=== PATIENT | female | born 2000 | race Caucasian/White ===

== ENCOUNTER 2021-07-02 10:32 | Emergency (ER) | payer OTHER ==
[2021-07-02] MEDS ORDERED: DEXAMETHASONE 10 MG/ML VIAL PO STA (11:28)
[2021-07-02] MEDS ORDERED: CHERRY SYRUP 10 ML UDC PO ONE (11:28)
[2021-07-02] MEDS ORDERED: KETOROLAC 60 MG/2 ML VIAL IM STA (11:28)
--- NOTE | 2021-07-02 11:31 | ED Physician Documentation ---
PD HPI CHEST PAIN - Stated complaint Stated Complaint: SOA, CHEST PX - Chief complaint Chief Complaint: Cardiac - History obtained from History obtained from: Patient - History of Present Illness Timing - onset: Enter time (0600), Today Timing - onset during: Rest Timing - duration: Hours Timing - details: Abrupt onset, Still present Pain level max: 7 Pain level now: 5 Quality: Sharp, Pain Location: Substernal, Left chest Radiation: Back Improved by: Rest Worsened by: Inspiration, Palpation Associated symptoms: No: Shortness of air, Diaphoresis, Nausea, Vomiting, Feeling faint / dizzy, General Weakness, Palpitations, Cough Similar symptoms before: Has not had sx before Recently seen: Not recently seen - Additional information Additional information: Previous well 20-year-old female has developed some pain in left anterior chest that is worse with a deep breath. She awoke with this pain this morning and was well last night when she went to bed. She states that she has not recently been ill and has been very inactive at work. She states that mostly with they are doing out with sitting and waiting. She does indicate that about a week ago she did have a bout of sobbing. Review of Systems Constitutional: denies: Fever Eyes: denies: Decreased vision Ears: denies: Ear pain Nose: denies: Congestion Throat: denies: Sore throat Cardiac: reports: Chest pain / pressure. denies: Palpitations, Pedal edema, Calf pain Respiratory: denies: Dyspnea, Cough, Wheezing GI: denies: Abdominal Pain, Nausea, Vomiting, Constipation, Diarrhea : denies: Dysuria, Frequency Skin: denies: Rash Musculoskeletal: reports: Back pain. denies: Neck pain, Extremity pain Neurologic: denies: Generalized weakness, Focal weakness, Numbness PD PAST MEDICAL HISTORY - Past Medical History Past Medical History: No Cardiovascular: None Respiratory: None Neuro: None Endocrine/Autoimmune: None GI: None COMPLIANCE INTERN: None : None HEENT: None Psych: None Musculoskeletal: None Derm: None - Past Surgical History Past Surgical History: No - Present Medications Home Medications: Ambulatory Orders Medication Instructions Recorded Confirmed No Known Home Medications 07/02/21 07/02/21 - Allergies Allergies/Adverse Reactions: Allergies Allergy/AdvReac Type Severity Reaction Status Date / Time No Known Drug Allergies Allergy Verified 07/02/21 10:36 - Social History Does the pt smoke?: No Smoking Status: Never smoker Does the pt drink ETOH?: No Does the pt have substance abuse?: No - Immunizations Immunizations are current?: Yes PD ED PE NORMAL - Vitals Vital signs reviewed: Yes (hypertensive mild) - General General: Alert and oriented X 3, No acute distress, Well developed/nourished - HEENT HEENT: Atraumatic, PERRL, EOMI - Neck Neck: Supple, no meningeal sign, No bony TTP - Cardiac Cardiac: RRR, No murmur - Respiratory Respiratory: No respiratory distress, Clear bilaterally, Other (There is point tenderness to the anterior chest wall at the border of the sternum and the rib about 2cm below the sternal notch. similar pain to palp on the back . ) - Abdomen Abdomen: Soft, Non tender - Back Back: No CVA TTP, No spinal TTP - Derm Derm: Normal color, Warm and dry, No rash - Extremities Extremities: No deformity, No edema - Neuro Neuro: Alert and oriented X 3, chicken catcher 2-12 intact, No motor deficit, No sensory deficit, Normal speech Eye Opening: Spontaneous Motor: Obeys Commands Verbal: Oriented GCS Score: 15 - Psych Psych: Normal mood, Normal affect Results - Vitals Vitals: Vital Signs - 24 hr 07/02/21 07/02/21 10:36 10:54 Temperature 36.2 C L Heart Rate 95 98 Respiratory 16 26 H Rate Blood Pressure 118/88 H 122/81 H O2 Saturation 99 94 Oxygen O2 Source Room air - EKG (time done) 1039 Rate: Rate (enter#) (97) Rhythm: LAE Ischemia: Normal ST segments Compare to prior EKG: Old EKG unavailable Computer interpretation: Agree with computer - Labs Labs: Laboratory Tests 07/02/21 07/02/21 07/02/21 11:43 11:43 11:43 WBC 6.3 RBC 4.04 L Hgb 12.8 Hct 39.3 MCV 97.3 MCH 31.7 H MCHC 32.6 RDW 12.2 Plt Count 280 MPV 10.2 Neut # (Auto) 4.2 Lymph # (Auto) 1.6 [place] # (Auto) 0.4 Eos # (Auto) 0.0 Baso # (Auto) 0.0 Absolute Nucleated RBC 0.00 Nucleated RBC % 0.0 Sodium 136 Potassium 3.5 Chloride 100 L Carbon Dioxide 26 Anion Gap 10.0 BUN 12 Creatinine 0.5 Estimated GFR (MDRD) 157 Glucose 80 Calcium 9.3 Total Bilirubin 0.4 AST 41 ALT 62 H Alkaline Phosphatase 55 Troponin I High Sens < 2.3 L Total Protein 7.5 Albumin 4.4 Globulin 3.1 Albumin/Globulin Ratio 1.4 Lipase 35 PD MEDICAL DECISION MAKING - ED course Complexity details: reviewed results, re-evaluated patient, considered differential, d/w patient ED course: Previously well 20-year-old female active [employer] has developed left anterior chest pain that is reproducible with palpation of the anterior chest wall. She has costochondritis. After extensive questioning the patient has had a bout of sobbing about a week prior to the onset of this pain. I suspect this may be the culprit. She is administered dexamethasone and Toradol. Electrocardiogram is without abnormality chest x-ray without abnormality we will obtain blood work as well. Departure - Departure Disposition: 01 Home, Self Care Clinical Impression: Costochondritis, acute Condition: Stable Instructions: ED Chest Pain Costochondritis Follow-Up: Sweetie Barber ARNP [Primary Care Provider] - Comments: Kalani, today looks like you have costochondritis. This is usually an inflammatory process related to excessive movement in your chest and is likely related to the sobbing episode you had last week. The medication for the treatment of this is ibuprofen. Make certain you take this with food as it irritates the lining of everybody's stomach. This pain should be resolved within a week to 10 days.
[2021-07-02 11:48] LABS: BASOPHILS % (AUTO) 0.5 %; EOSINOPHILS % (AUTO) 0.5 %; HCT - HEMATOCRIT 39.3 % (37.0-47.0); HGB - HEMOGLOBIN 12.8 g/dL (12.0-16.0); LYMPHOCYTES # (AUTO) 1.6 10^3/uL (1.5-3.5); LYMPHOCYTES % (AUTO) 25.8 %; MEAN CORPUSCULAR HEMOGLOBIN 31.7 pg (27.0-31.0); MEAN CORPUSCULAR HGB CONC 32.6 g/dL (32.0-36.0); MEAN CORPUSCULAR VOLUME 97.3 fL (81.0-99.0); MEAN PLATELET VOLUME 10.2 fL (7.9-10.8); MONOCYTES # (AUTO) 0.4 10^3/uL (0.0-1.0); MONOCYTES % (AUTO) 6.1 %; NEUTROPHILS # (AUTO) 4.2 10^3/uL (1.5-6.6); NEUTROPHILS % (AUTO) 66.9 %; PLT - PLATELET COUNT 280 10^3/uL (130-450); RED BLOOD COUNT 4.04 10^6/uL (4.20-5.40); RED CELL DISTRIBUTION WIDTH 12.2 % (12.0-15.0); WHITE BLOOD COUNT 6.3 x10^3/uL (4.8-10.8)
--- NOTE | 2021-07-02 11:56 | XRAY Report ---
PROCEDURE: Chest 1 View X-Ray INDICATIONS: chest pain TECHNIQUE: One view of the chest was acquired. COMPARISON: None. FINDINGS: SUPPORT DEVICES: None. LUNGS/PLEURA: No focal consolidation, pleural effusion or space-occupying pneumothorax. MEDIASTINUM: The cardiomediastinal silhouette is within normal limits. BONES/SOFT TISSUES: No acute abnormality. IMPRESSION: 1.No acute cardiopulmonary abnormality. Reviewed by: Venkatesh Murrell MD on 07/02/2021 11:55 AM PDT Approved by: Venkatesh Murrell MD on 07/02/2021 11:55 AM PDT Station ID: [id number]
[2021-07-02 12:11] LABS: ALBUMIN 4.4 g/dL (3.2-5.5); ALBUMIN/GLOBULIN RATIO 1.4 (1.0-2.2); BILIRUBIN,TOTAL 0.4 mg/dL (0.2-1.0); CALCIUM 9.3 mg/dL (8.5-10.3); CREATININE 0.5 mg/dL (0.4-1.0); POTASSIUM 3.5 mmol/L (3.5-5.0); TOTAL PROTEIN 7.5 g/dL (6.7-8.2)
[2021-07-02 12:38] VITALS: BP 108/68
== END 2021-07-02 12:41 | disposition home or self-care (01) ==
LOC: ED 10:32
DX: M94.0 Chondrocostal junction syndrome [Tietze] (principal)
CPT/HCPCS: 36415; 71045; 80053; 83690; 84484; 85025; 93005; 96372; 99284; A9270

== ENCOUNTER 2022-02-28 14:43 | Emergency (ER) | payer OTHER ==
[2022-02-28 15:11] VITALS: BP 124/72
--- NOTE | 2022-02-28 15:23 | ED Physician Documentation ---
History of Present Illness - Stated complaint Stated Complaint: STITCHES REMOVAL - Chief complaint Chief Complaint: General - History obtained from History obtained from: Patient - History of Present Illness Timing: How many weeks ago (2) Pain level max: 0 Pain level now: 0 - Additonal information Additional information: 21-year-old female here requesting suture removal. She apparently was struck in the right leg by her pet pig. The sutures were placed at an outside hospital. They were placed about 2 weeks ago. Denies any drainage or redness. No fevers. Review of Systems Constitutional: denies: Fever : denies: Now [facility] PAST MEDICAL HISTORY - Past Medical History Cardiovascular: None Respiratory: None Neuro: None Endocrine/Autoimmune: None GI: None CONTINUITY EDITOR: None : None HEENT: None Psych: None Musculoskeletal: None Derm: None - Past Surgical History Past Surgical History: No - Present Medications Home Medications: Ambulatory Orders Medication Instructions Recorded Confirmed No Known Home Medications 07/02/21 02/28/22 - Allergies Allergies/Adverse Reactions: Allergies Allergy/AdvReac Type Severity Reaction Status Date / Time No Known Drug Allergies Allergy Verified 07/02/21 10:36 - Social History Does the pt smoke?: No Smoking Status: Never smoker Does the pt drink ETOH?: No Does the pt have substance abuse?: No - Immunizations Immunizations are current?: Yes PD ED PE NORMAL - Vitals Vital signs reviewed: Yes - General General: Alert and oriented X 3, No acute distress - Derm Derm: Warm and dry - Extremities Extremities: Other (Sutures in place over the right lower thigh and right upper lower leg. No signs of infection.) - Neuro Neuro: Alert and oriented X 3 Results - Vitals Vitals: Vital Signs - 24 hr 02/28/22 15:07 Temperature 37.0 C Heart Rate 91 Respiratory 19 Rate Blood Pressure 124/72 O2 Saturation 99 Oxygen O2 Source Room air Procedures - Suture/staple Removal (location) Right leg Suture/staple removal: # sutures (All), No complications PD MEDICAL DECISION MAKING - ED course Complexity details: considered differential, d/w patient ED course: All sutures removed. No dehiscence. No signs of infection. Patient counseled regarding signs and symptoms for which I believe and urgent re-evaluation would be necessary. Patient with good understanding of and agreement to plan and is comfortable going home at this time This document was made in part using voice recognition software. While efforts are made to proofread this document, sound alike and grammatical errors may occur. Departure - Departure Disposition: 01 Home, Self Care Clinical Impression: Visit for suture removal Condition: Good Instructions: ED Stap Removal No Complication Comments: Please follow-up with your doctor as needed for further care. Return if you worsen. Return for redness, swelling or drainage from the wound. As we discussed, applying lotion, vitamin E and sunscreen will help to minimize scarring. Discharge Date/Time: 02/28/22 15:36
== END 2022-02-28 15:36 | disposition home or self-care (01) ==
LOC: ED 14:43
DX: S81.811D Laceration without foreign body, right lower leg, subsequent encounter (principal); W55.42XD Struck by pig, subsequent encounter
CPT/HCPCS: 99281